=== PATIENT | male | born 1975 | race Caucasian/White ===

== ENCOUNTER 2016-03-24 10:27 | Emergency (ER) | payer BC, OTHER ==
[~2016-03-24] VITALS: Ht 177.8 cm; Wt 109.2 kg
[2016-03-24 10:33] VITALS: TEMP 36.6; Ht 177.8 cm; Wt 109.2 kg
[2016-03-24] MEDS ORDERED: SODIUM CHLORIDE 0.9% 1000ML 1,000 ML IV STA (11:10)
[2016-03-24] MEDS ORDERED: ASPIRIN 81 MG CHEW PO STA (11:10)
[2016-03-24] MEDS ORDERED: ALBUT/IPRATROP 3MG/0.5MG NEB 3 ML VIAL INH STA ×2 (11:10→13:24)
--- NOTE | 2016-03-24 11:16 | EMERGENCY ROOM VISIT NOTE ---
History Report prepared by Berry: Lilliana Chaudhry Under the Supervision of: Dr. Danae Dover M.D. First contact with patient: 10:58 Chief Complaint: SHORTNESS OF BREATH Stated Complaint: SOB Nursing Triage Summary: SOB started beginning of February while hunting. Monday [facility], pain and pressure in ears, prescribed prednisone and antibiotic. "Still congested, ears still popping, started freaking out because I couldn't catch my breath." History of Present Illness The patient is a 40 year old male who presents to the Emergency Room with complaints of intermittent shortness of breath that began several months ago. The patient states that he first noticed his shortness of breath during hunting season. He states that he originally attributed his shortness of breath to being out of shape. The patient states that this past week he went to [facility] for an ear infection and stuffiness. He states that he was placed on an antibiotic. The patient states that today while at work, he was moving stuff at work today when he developed shortness of breath along with chest pain. He states that he stopped smoking in February of this year. The patient denies any nausea. He states that that he develops the chest pain when breathing. The patient notes a history of hypertension. He states that when he was diagnosed with hypertension 4-5 years ago, he had a stress test to see what type of medication to start him on. The patient states that there is a family history of heart disease and diabetes. He denies taking any aspirin today. Source of History: patient Onset: several months ago Position: other (global) Quality: other (shortness of breath) Timing: intermittent Modifying Factors (Worsening): exertion Associated Symptoms: + chest pain, No nausea Review of Systems See HPI for pertinent positives & negatives. A total of 10 systems reviewed and were otherwise negative. Past Medical & Surgical Medical Problems: (1) Hypertension Family History Diabetes mellitus Hypertension Social History Smoking Status: Former Smoker Smokeless Tobacco Use: Yes Alcohol Use: occasionally Marital Status: Housing Status: lives with significant other Occupation Status: employed Current/Historical Medications Scheduled Amoxicillin & Pot Clavulanate (Augmentin 500MG), Unknown Dose PO Q8H Atorvastatin (Lipitor), 20 MG PO DAILY Buspirone Hcl (Buspirone Hcl), 10 MG PO BID Losartan Potassium (Cozaar), 50 MG PO DAILY Omeprazole (Prilosec), 40 MG PO DAILY Prednisone (Prednisone), 40 MG PO DAILY Scheduled PRN Albuterol Hfa (Ventolin Hfa), 2-4 PUFFS INH Q6H PRN for wheeze Miscellaneous Medications Prednisone (Prednisone), Unknown Dose PO Allergies Coded Allergies: No Known Allergies (Unverified , 03/24/16) Physical Exam Vital Signs Date Time Temp Pulse Resp B/P Pulse Ox O2 Delivery O2 Flow Rate FiO2 03/24/16 14:30 95 18 130/82 96 Room Air 03/24/16 13:30 87 23 136/84 95 Room Air 03/24/16 13:29 98 03/24/16 13:15 89 17 131/87 96 Room Air 03/24/16 11:17 88 23 143/90 Room Air 03/24/16 10:49 102 03/24/16 10:33 99 Room Air 03/24/16 10:33 36.6 117 24 124/72 98 Room Air Physical Exam Vital signs reviewed. General: Generally well-appearing male, in no significant distress. HEENT: No scleral icterus, PERRLA, neck supple. Atraumatic. Cardiovascular: Tachycardic rate and regular rhythm, no extra sounds. Pulmonary: Faint wheezes throughout bilateral lung arreaga. Normal work of breathing. Abdomen: Soft, nontender, nondistended, positive bowel sounds. Musculoskeletal: Atraumatic, no peripheral edema. Neurologic: Patient awake alert and oriented x 3, full strength in all 4 extremities. Cranial nerves 2 through 12 grossly intact. Skin: Warm, dry, no rash Medical Decision & Procedures ER Provider Diagnostic Interpretation: X-ray results as stated below per my interpretation and radiologist interpretation. Other radiology results as stated below per my review and radiologist interpretation: CHEST ONE VIEW PORTABLE CLINICAL HISTORY: Atypical chest pain SHORTNESS OF BREATH COMPARISON STUDY: No previous studies for comparison. FINDINGS: The heart is the upper limits of normal in size. There is mild soft tissue prominence of the right paratracheal region. There is no focal pulmonary consolidation. There is no failure. There are no pleural effusions.[ IMPRESSION: 1. Mild fullness of the right paratracheal region 2. No evidence of failure. No evidence of focal pulmonary consolidation Electronically signed by: Hank Jensen M.D. 03/24/2016 11:33 AM Dictated Date/Time: 03/24/2016 11:[address] ANGIOGRAM OF THE CHEST CLINICAL HISTORY: Shortness of breath. Possible pulmonary embolism. CHEST PAIN COMPARISON STUDY: Chest x-ray dated 03/24/2016 TECHNIQUE: Following the IV administration of 93 mL of Optiray-320, CT angiogram of the thorax was performed from the thoracic inlet to the lung bases utilizing the pulmonary embolus protocol. Images are reviewed in the axial, sagittal, and coronal planes. IV contrast was administered without complication. MIP imaging was performed. CT DOSE: 640.96 mGycm FINDINGS: No pathologically enlarged axillary mediastinal or hilar lymph nodes were visualized. The prominent right paratracheal shadow was described on the recent chest x-ray is secondary to spinal fat deposition. There was no evidence of thoracic aortic dilatation. There were no pulmonary artery filling defects to indicate acute pulmonary embolism. No pleural effusions are visualized. There was no evidence of focal pulmonary consolidation. IMPRESSION: 1. No CT evidence of acute pulmonary embolism 2. No evidence of focal pulmonary consolidation 3. No evidence of pathologic adenopathy Electronically signed by: Hank Jensen M.D. 03/24/2016 12:24 PM Dictated Date/Time: 03/24/2016 12:20 PM Laboratory Results 03/24/16 11:00 Red Blood Count 4.65, Mean Corpuscular Volume 90.3, Mean Corpuscular Hemoglobin 32.3, Mean Corpuscular Hemoglobin Concent 35.7, Mean Platelet Volume 10.3, Neutrophils (%) (Auto) 85.8, Lymphocytes (%) (Auto) 7.7, Monocytes (%) (Auto) 5.7, Eosinophils (%) (Auto) 0.1, Basophils (%) (Auto) 0.1, Neutrophils # (Auto) 11.83, Lymphocytes # (Auto) 1.06, Monocytes # (Auto) 0.79, Eosinophils # (Auto) 0.01, Basophils # (Auto) 0.02 03/24/16 11:00 Test 03/24/16 11:00 03/24/16 11:25 White Blood Count 13.79 K/uL (4.8-10.8) Red Blood Count 4.65 M/uL (4.7-6.1) Hemoglobin 15.0 g/dL (14.0-18.0) Hematocrit 42.0 % (42-52) Mean Corpuscular Volume 90.3 fL (80-100) Mean Corpuscular Hemoglobin 32.3 pg (25-34) Mean Corpuscular Hemoglobin Concent 35.7 g/dl (32-36) Platelet Count 317 K/uL (130-400) Mean Platelet Volume 10.3 fL (7.4-10.4) Neutrophils (%) (Auto) 85.8 % Lymphocytes (%) (Auto) 7.7 % Monocytes (%) (Auto) 5.7 % Eosinophils (%) (Auto) 0.1 % Basophils (%) (Auto) 0.1 % Neutrophils # (Auto) 11.83 K/uL (1.4-6.5) Lymphocytes # (Auto) 1.06 K/uL (1.2-3.4) Monocytes # (Auto) 0.79 K/uL (0.11-0.59) Eosinophils # (Auto) 0.01 K/uL (0-0.5) Basophils # (Auto) 0.02 K/uL (0-0.2) RDW Standard Deviation 42.2 fL (36.4-46.3) RDW Coefficient of Variation 13.0 % (11.5-14.5) Immature Granulocyte % (Auto) 0.6 % Immature Granulocyte # (Auto) 0.08 K/uL (0.00-0.02) Anion Gap 13.0 mmol/L (3-11) Est Creatinine Clear Calc Drug Dose 108.2 ml/min Estimated GFR () 95.5 Estimated GFR (Non- 82.4 BUN/Creatinine Ratio 11.3 (10-20) Calcium Level 9.3 mg/dl (8.5-10.1) Magnesium Level 2.3 mg/dl (1.8-2.4) Total Bilirubin 0.5 mg/dl (0.2-1) Direct Bilirubin 0.1 mg/dl (0-0.2) Aspartate Amino Transf (AST/SGOT) 43 U/L (15-37) Alanine Aminotransferase (ALT/SGPT) 80 U/L (12-78) Alkaline Phosphatase 92 U/L (45-117) Total Creatine Kinase 583 U/L (39-308) Creatine Kinase MB 0.5 ng/ml (0.5-3.6) Creatine Kinase MB Ratio 0.1 (0-3.0) Total Protein 7.9 gm/dl (6.4-8.2) Albumin 3.9 gm/dl (3.4-5.0) Lipase 117 U/L (73-393) Bedside D-Dimer > 450 ng/mlFEU (0-450) Bedside Troponin I 0.000 ng/ml (0-0.045) Laboratory results per my review. Medications Administered Medications (Trade) Dose Ordered Sig/Hugh Route Start Time Stop Time Status Last Admin Dose Admin Aspirin 324 mg 324 mg NOW STAT PO 03/24/16 11:10 03/24/16 11:12 DC 03/24/16 11:28 324 MG Sodium Chloride (Nss 1000ml) 1,000 ml @ 200 mls/hr Q5H STAT IV 03/24/16 11:10 03/24/16 15:18 DC 03/24/16 11:10 200 MLS/HR Albuterol/ Ipratropium (Duoneb) 3 ml NOW STAT INH 03/24/16 11:10 03/24/16 11:12 DC 03/24/16 11:28 3 ML Methylprednisolone Sodium Succinate (Solu-Medrol IV) 125 mg NOW STAT IV 03/24/16 13:24 03/24/16 13:25 DC 03/24/16 13:33 125 MG Albuterol/ Ipratropium (Duoneb) 3 ml NOW STAT INH 03/24/16 13:24 03/24/16 13:25 DC 03/24/16 13:33 3 ML ECG Indication: SOB/dyspnea Rate (beats per minute): 95 Rhythm: sinus with SA Findings: PVC, no acute ischemic change ED Course 1106: Past medical records reviewed. The patient was evaluated in room A12A. A complete history and physical examination was performed. 1110: Ordered Duoneb 3 ml INH, Sodium Chloride 1000 ml @ 200 mls/hr IV, Aspirin 324 mg PO. 1324: I reevaluated the patient and he is feeling short of breath again. I discussed the exam findings with him and I discussed the treatment plan. He verbalized complete understanding and agreement. He is going to have another breathing treatment and then he is ready to go home. Ordered Duoneb 3 ml INH, Solu-Medrol IV 125 mg IV. 1350: I reevaluated the patient and he is doing well. He is ready to go home. Medical Decision Differential diagnosis: Etiologies such as infections, reactive airway disease, pneumonia, pneumothorax , COPD, CHF, acute coronary syndrome, cardiac ischemia, pulmonary embolism, musculoskeletal, gastrointestinal, as well as others were entertained. This pt was evaluated and appeared to be in no distress. IV access was obtained and lab work was drawn. PT was placed on the environmental monitoring specialist. Pt was given ASA 324 mg orally. He was given IV NSS as he was tachycardic. EKG reveals no acute ischemia. Lab work reveals an elevated ddimer, neg troponin. CXR reveals a mild fullness in paratracheal region. Pt was feeling improved after nebulizer but had some increased SOB after it began to wear off. The neb was repeated and a CT chest was performed. Pt was also given IV solumedral. Pt was feeling improved. CT was negative. Pt was informed of the findings. He was d/c with an albuterol inhaler and a prednisone taper. He will return to the ED for worsening of symptoms or any medical concerns. Impression Primary Impression: Reactive airway disease Scribe Attestation The scribe's documentation has been prepared under my direction and personally reviewed by me in its entirety. I confirm that the note above accurately reflects all work, treatment, procedures, and medical decision making performed by me. Departure Information Dispostion Home / Self-Care Prescriptions Prednisone (Prednisone) 20 Mg Tab 40 MG PO DAILY, #8 TAB Prov: Danae Dover M.D. 03/24/16 Albuterol Hfa (VENTOLIN HFA) 200 Puffs/37756 Mcg Aers 2-4 PUFFS INH Q6H Y for wheeze, #1 INHALER Prov: Danae Dover M.D. 03/24/16 Referrals Patience Echevarria D.O. (PCP) Forms HOME CARE DOCUMENTATION FORM, IMPORTANT VISIT INFORMATION Patient Instructions My [facility] Additional Instructions Diagnosis: Reactive airway disease Prednisone 40 mg for 4 more days, start tomorrow Albuterol 2 puffs every 4 hours as needed for cough or wheezing. Follow-up with your physician this week for reevaluation and consideration of pulmonary function test and further cardiac testing. Return to the emergency department for worsening of symptoms or any medical concerns. Problem Qualifiers Primary Impression: Reactive airway disease Asthma severity: mild intermittent Asthma complication type: with acute exacerbation Qualified Codes: J45.21 - Mild intermittent asthma with (acute) exacerbation
[2016-03-24 11:26] LABS: BASO % 0.1 %; BASO ABS # 0.02 K/uL (0-0.2); COMPLETE YES; EOS % 0.1 %; IG% 0.6 %; LYMPH % 7.7 %; LYMPH ABS # 1.06 K/uL (1.2-3.4); MEAN CELL VOLUME 90.3 fL (80-100); MEAN CORPUSCULAR HEMOGLOBIN 32.3 pg (25-34); MEAN CORPUSCULAR HGB CONC 35.7 g/dl (32-36); MEAN PLATELET VOLUME 10.3 fL (7.4-10.4); MONO % 5.7 %; NEUT % 85.8 %; PLATELET COUNT 317 K/uL (130-400); RED BLOOD COUNT 4.65 M/uL (4.7-6.1); WHITE BLOOD COUNT 13.79 K/uL (4.8-10.8)
[2016-03-24 11:34] LABS: BUN/CREATININE RATIO 11.3 (10-20); CALCIUM 9.3 mg/dl (8.5-10.1); CREATININE 1.1 mg/dl (0.60-1.40); MAGNESIUM 2.3 mg/dl (1.8-2.4); POTASSIUM 3.5 mmol/L (3.5-5.1)
--- NOTE | 2016-03-24 11:35 | DIAGNOSTIC IMAGING REPORT ---
CHEST ONE VIEW PORTABLE CLINICAL HISTORY: Atypical chest pain SHORTNESS OF BREATH COMPARISON STUDY: No previous studies for comparison. FINDINGS: The heart is the upper limits of normal in size. There is mild soft tissue prominence of the right paratracheal region. There is no focal pulmonary consolidation. There is no failure. There are no pleural effusions.[ IMPRESSION: 1. Mild fullness of the right paratracheal region 2. No evidence of failure. No evidence of focal pulmonary consolidation Electronically signed by: Hank Jensne M.D. 03/24/2016 11:33 AM Dictated Date/Time: 03/24/2016 11:32 AM
[2016-03-24 11:37] LABS: CKMB/CK RATIO 0.1 (0-3.0)
[2016-03-24] MEDS ORDERED: BUSP-8 PO (11:52)
[2016-03-24] MEDS ORDERED: PRED-301 PO (11:52)
[2016-03-24] MEDS ORDERED: ATOR-22 PO (11:52)
[2016-03-24] MEDS ORDERED: LOSA50TA6 PO (11:52)
[2016-03-24] MEDS ORDERED: AMOX500T PO (11:52)
[2016-03-24] MEDS ORDERED: OMEP40CA PO (11:52)
[2016-03-24] MEDS ORDERED: OPTIRAY 320 IV PRN (12:00)
--- NOTE | 2016-03-24 12:26 | DIAGNOSTIC IMAGING REPORT ---
CT ANGIOGRAM OF THE CHEST CLINICAL HISTORY: Shortness of breath. Possible pulmonary embolism. CHEST PAIN COMPARISON STUDY: Chest x-ray dated 03/24/2016 TECHNIQUE: Following the IV administration of 93 mL of Optiray-320, CT angiogram of the thorax was performed from the thoracic inlet to the lung bases utilizing the pulmonary embolus protocol. Images are reviewed in the axial, sagittal, and coronal planes. IV contrast was administered without complication. MIP imaging was performed. CT DOSE: 640.96 mGycm FINDINGS: No pathologically enlarged axillary mediastinal or hilar lymph nodes were visualized. The prominent right paratracheal shadow was described on the recent chest x-ray is secondary to spinal fat deposition. There was no evidence of thoracic aortic dilatation. There were no pulmonary artery filling defects to indicate acute pulmonary embolism. No pleural effusions are visualized. There was no evidence of focal pulmonary consolidation. IMPRESSION: 1. No CT evidence of acute pulmonary embolism 2. No evidence of focal pulmonary consolidation 3. No evidence of pathologic adenopathy Electronically signed by: Hank Jensen M.D. 03/24/2016 12:24 PM Dictated Date/Time: 03/24/2016 12:20 PM
[2016-03-24] MEDS ORDERED: METHYLPREDNISOLONE 125 MG VIAL IV STA (13:24)
[2016-03-24] MEDS ORDERED: VNTHFA/IN INH (13:36)
[2016-03-24] MEDS ORDERED: PRED20TA PO (13:37)
[2016-03-24 14:30] VITALS: BP 130/82; PULSE 95; O2SAT 96
== END 2016-03-24 14:45 | disposition home or self-care (01) ==
LOC: C.EDB 10:28 → C.EDA 14:45
DX: J45.21 Mild intermittent asthma with (acute) exacerbation (principal); I10 Essential (primary) hypertension; Z87.891 Personal history of nicotine dependence; Z83.3 Family history of diabetes mellitus; Z82.49 Family history of ischemic heart disease and other diseases of the circulatory system